=== PATIENT | female | born 1940 | race African-American/Black ===

== ENCOUNTER 2022-07-28 10:27 | Inpatient (IN) | payer MEDICARE, MEDICAID ==
[~2022-07-28] VITALS: Ht 162.6 cm; Wt 81.2 kg
[2022-07-28] MEDS ORDERED: NITROGLYCERIN 0.4MG TABLET SL SL PRN (11:30)
[2022-07-28] MEDS ORDERED: ASPIRIN 81MG TABLET PO ONE (11:30)
[2022-07-28 11:41] LABS: BASOPHILS % 0.5 % (0.0-2.0); EOSINOPHILS % 0.7 % (0.0-5.0); HEMATOCRIT. 39.1 % (36.0-48.0); HEMOGLOBIN. 13.1 g/dL (12.0-16.0); LYMPHOCYTES % 17.1 % (20.0-50.0); MEAN CORPUSCULAR HEMOGLOBIN 32.4 pg (28.0-32.0); MEAN CORPUSCULAR VOLUME 96.8 fL (81.0-99.0); MEAN PLATELET VOLUME 8.6 fl (7.4-10.4); MONOCYTES % 12.6 % (2.0-8.0); NEUTROPHILS % 69.1 % (40.0-76.0); PLATELET 165 x1000/uL (130-400); RED BLOOD CELL COUNT 4.04 mill/uL (4.2-5.4); RED CELL DISTRIBUTION WIDTH 15.3 % (11.6-14.6)
[2022-07-28 11:49] LABS: CHLORIDE 107 mEq/L (98-107)
[2022-07-28 16:00] VITALS: BP 96/50
[2022-07-28] MEDS ORDERED: CLONIDINE 0.1MG TABLET PO PRN (16:45)
[2022-07-28] MEDS ORDERED: HYDROCODONE/ACETAMINOPHEN 5/325MG TABLET PO PRN ×2 (16:45→17:00)
[2022-07-28] MEDS ORDERED: ONDANSETRON HCL 4MG/2ML INJ IV PRN (16:45)
[2022-07-28] MEDS ORDERED: ACETAMINOPHEN 325MG TABLET PO PRN (16:45)
[2022-07-28] MEDS ORDERED: IPRATROPIUM/ALBUTEROL 0.5-3(2.5)MG/3ML NEB HHN PRN (16:45)
[2022-07-28 17:00] VITALS: BP 96/50
[2022-07-28 20:00] VITALS: BP 116/67
[2022-07-29] VITALS: BP 119/61
[2022-07-29 04:00] VITALS: BP 121/64
[2022-07-29] MEDS: ACETAMINOPHEN 325MG TABLET PO PRN ×2 (06:47→14:51)
[2022-07-29 08:00] VITALS: BP 105/69
[2022-07-29] MEDS ORDERED: REGADENOSON 0.4 MG/5 ML IV NR (09:00)
[2022-07-29] MEDS: ASPIRIN 81MG EC TABLET PO SCH (09:08)
[2022-07-29] MEDS: ENOXAPARIN 40MG/0.4ML SYR SUBCUT SCH (09:10)
[2022-07-29 12:00] VITALS: BP 100/58
[2022-07-29 16:00] VITALS: BP 91/51
[2022-07-29 16:18] LABS: HEMATOCRIT. 34.2 % (36.0-48.0); HEMOGLOBIN. 11.3 g/dL (12.0-16.0); MEAN CORPUSCULAR HEMOGLOBIN 32.2 pg (28.0-32.0); MEAN CORPUSCULAR VOLUME 97.4 fL (81.0-99.0); MEAN PLATELET VOLUME 7.9 fl (7.4-10.4); PLATELET 158 x1000/uL (130-400); RED BLOOD CELL COUNT 3.51 mill/uL (4.2-5.4)
[2022-07-29 16:46] LABS: CHLORIDE 107 mEq/L (98-107)
[2022-07-29 17:03] LABS: T4 FREE 0.88 ng/dL (0.76-1.46)
[2022-07-29 17:42] LABS: PLATELET ESTIMATE NORMAL
[2022-07-29 20:00] VITALS: BP 107/68
[2022-07-29] MEDS: LORAZEPAM 0.5MG TABLET PO PRN ×2 (22:35→22:45)
[2022-07-29] MEDS: ATORVASTATIN CALCIUM 10MG TABLET PO SCH ×2 (22:36→22:45)
[2022-07-30] VITALS: BP 95/51
[2022-07-30 04:00] VITALS: BP 135/73
[2022-07-30] MEDS: ACETAMINOPHEN 325MG TABLET PO PRN ×4 (05:52→21:32)
[2022-07-30 07:12] LABS: EOSINOPHILS % 5.2 % (0.0-5.0); HEMATOCRIT. 36.8 % (36.0-48.0); HEMOGLOBIN. 12.2 g/dL (12.0-16.0); LYMPHOCYTES % 39.5 % (20.0-50.0); MEAN CORPUSCULAR HEMOGLOBIN 32.3 pg (28.0-32.0); MEAN CORPUSCULAR VOLUME 97.7 fL (81.0-99.0); MEAN PLATELET VOLUME 8.6 fl (7.4-10.4); MONOCYTES % 13.9 % (2.0-8.0); NEUTROPHILS % 40.4 % (40.0-76.0); PLATELET 156 x1000/uL (130-400); RED BLOOD CELL COUNT 3.77 mill/uL (4.2-5.4); RED CELL DISTRIBUTION WIDTH 15.2 % (11.6-14.6)
[2022-07-30 07:27] LABS: CHLORIDE 109 mEq/L (98-107)
[2022-07-30 08:00] VITALS: BP 109/64
[2022-07-30] MEDS: ASPIRIN 81MG EC TABLET PO SCH (08:48)
[2022-07-30] MEDS: ENOXAPARIN 40MG/0.4ML SYR SUBCUT SCH (08:49)
[2022-07-30] MEDS ORDERED: REGADENOSON 0.4 MG/5 ML IV ONE (08:52)
[2022-07-30 09:33] LABS: CLARITY URINE CLOUDY (CLEAR); COLOR URINE YELLOW (YELLOW); KETONES URINE NEGATIVE (NEGATIVE); LEUKOCYTE ESTERASE URINE 1+ (NEGATIVE); NITRITE URINE NEGATIVE (NEGATIVE); OCCULT BLOOD URINE NEGATIVE (NEGATIVE); PH URINE 6.5 (4.5-8.0); PROTEIN URINE NEGATIVE (NEGATIVE); SPECIFIC GRAVITY URINE 1.013 (1.005-1.030); UROBILINOGEN URINE 0.2 E.U./dL (0.2-1.0)
[2022-07-30 12:00] VITALS: BP 103/57
[2022-07-30] MEDS: LEVOFLOXACIN 500MG PREMIX 100 ML IV SCH (14:19)
[2022-07-30 16:00] VITALS: BP 101/51
[2022-07-30] MEDS: DOCUSATE SODIUM 100MG CAPSULE PO PRN (18:25)
[2022-07-30 20:00] VITALS: BP 100/61
[2022-07-30] MEDS ORDERED: LACTULOSE 20G/30ML UDC PO SCH (21:00)
[2022-07-30] MEDS: ATORVASTATIN CALCIUM 10MG TABLET PO SCH (21:30)
[2022-07-30] MEDS: LORAZEPAM 0.5MG TABLET PO PRN (21:40)
[2022-07-31] VITALS: BP 105/54
[2022-07-31 04:00] VITALS: BP 97/57
[2022-07-31 08:00] VITALS: BP 129/73
[2022-07-31 08:15] LABS: HEMATOCRIT. 36.9 % (36.0-48.0); HEMOGLOBIN. 11.9 g/dL (12.0-16.0); MEAN CORPUSCULAR HEMOGLOBIN 32.1 pg (28.0-32.0); MEAN CORPUSCULAR VOLUME 99.3 fL (81.0-99.0); MEAN PLATELET VOLUME 8.6 fl (7.4-10.4); PLATELET 162 x1000/uL (130-400); RED BLOOD CELL COUNT 3.72 mill/uL (4.2-5.4); RED CELL DISTRIBUTION WIDTH 15.3 % (11.6-14.6)
[2022-07-31] MEDS: ENOXAPARIN 40MG/0.4ML SYR SUBCUT SCH ×2 (09:00→10:24)
[2022-07-31 09:34] LABS: CHLORIDE 108 mEq/L (98-107)
[2022-07-31 09:39] LABS: PLATELET ESTIMATE NORMAL
[2022-07-31] MEDS: ACETAMINOPHEN 325MG TABLET PO PRN ×2 (10:34→22:04)
[2022-07-31 12:00] VITALS: BP 93/61
[2022-07-31] MEDS: LEVOFLOXACIN 500MG PREMIX 100 ML IV SCH (12:49)
[2022-07-31 16:00] VITALS: BP 112/69
[2022-07-31] MEDS: DOCUSATE SODIUM 100MG CAPSULE PO PRN (18:32)
[2022-07-31 20:00] VITALS: BP 100/60
[2022-07-31] MEDS: LORAZEPAM 0.5MG TABLET PO PRN (22:03)
[2022-07-31] MEDS: MAGNESIUM/ALUMINUM HYDROXIDE/SIMETHICONE 30ML UDC PO PRN (22:04)
[2022-08-01] VITALS: BP 99/74
[2022-08-01 04:00] VITALS: BP 107/67
[2022-08-01 08:00] VITALS: BP 108/57
[2022-08-01] MEDS: LEVOFLOXACIN 500MG TABLET PO SCH (10:38)
[2022-08-01] MEDS: ACETAMINOPHEN 325MG TABLET PO PRN ×3 (10:39→22:06)
[2022-08-01 12:00] VITALS: BP 125/96
[2022-08-01] MEDS: POLYETHYLENE GLYCOL 3350 (17GM) 1 DOSE PACK PO SCH (13:21)
[2022-08-01] MEDS: BENZOCAINE/LANOLIN/ALOE VERA SPRAY TOP PRN (15:43)
[2022-08-01] MEDS ORDERED: SODIUM CHLORIDE 0.9% 1000ML BAG (SEPSIS BOLUS) IV NR (15:45)
[2022-08-01 16:00] VITALS: BP 88/43
[2022-08-01 20:00] VITALS: BP 104/72
[2022-08-01] MEDS: ATORVASTATIN CALCIUM 10MG TABLET PO SCH (22:06)
[2022-08-01] MEDS: MAGNESIUM/ALUMINUM HYDROXIDE/SIMETHICONE 30ML UDC PO PRN (22:06)
[2022-08-01] MEDS: DOCUSATE SODIUM 100MG CAPSULE PO PRN (22:06)
[2022-08-02] MEDS: LORAZEPAM 0.5MG TABLET PO PRN (02:34)
[2022-08-02 08:00] VITALS: BP 98/58
[2022-08-02] MEDS: POLYETHYLENE GLYCOL 3350 (17GM) 1 DOSE PACK PO SCH (08:48)
[2022-08-02] MEDS: ENOXAPARIN 40MG/0.4ML SYR SUBCUT SCH ×2 (08:49→08:52)
[2022-08-02] MEDS: BENZOCAINE/LANOLIN/ALOE VERA SPRAY TOP PRN ×3 (08:49→21:18)
[2022-08-02] MEDS: ACETAMINOPHEN 325MG TABLET PO PRN ×3 (08:49→21:20)
[2022-08-02] MEDS ORDERED: LEVO750T68 MT (10:30)
[2022-08-02] MEDS ORDERED: ATOR10TA PO (10:30)
[2022-08-02 12:00] VITALS: BP 100/58
[2022-08-02] MEDS: LEVOFLOXACIN 500MG TABLET PO SCH (14:05)
[2022-08-02 16:00] VITALS: BP 109/66
[2022-08-02 20:00] VITALS: BP 116/69
[2022-08-02] MEDS: ATORVASTATIN CALCIUM 10MG TABLET PO SCH (21:17)
[2022-08-02] MEDS: MAGNESIUM/ALUMINUM HYDROXIDE/SIMETHICONE 30ML UDC PO PRN ×2 (21:19→22:43)
[2022-08-02] MEDS ORDERED: ZOLPIDEM TARTRATE 5MG TABLET PO PRN (23:30)
[2022-08-03] VITALS: BP 100/53
[2022-08-03 04:00] VITALS: BP_SYST 120; BP_SYST 151; BP_DIAS 53; BP_DIAS 86
[2022-08-03 08:11] VITALS: BP 99/58
[2022-08-03] MEDS: ENOXAPARIN 40MG/0.4ML SYR SUBCUT SCH ×2 (08:22→08:24)
[2022-08-03] MEDS: POLYETHYLENE GLYCOL 3350 (17GM) 1 DOSE PACK PO SCH (08:22)
[2022-08-03 10:06] VITALS: BP 99/58
[2022-08-03 10:11] LABS: VITAMIN B12 SERUM 306 pg/mL (211-911)
[2022-08-03] MEDS: LEVOFLOXACIN 500MG TABLET PO SCH (10:13)
[2022-08-03 12:09] LABS: CORTISOL 14.4 ucg/dL
[2022-08-03 12:35] VITALS: BP 100/66
[2022-08-03 15:34] LABS: PHOSPHORUS 3.4 mg/dL (2.5-4.9)
[2022-08-05 10:06] LABS: ANGIOTENSION CONVERTING ENZYME 22 U/L (14-82)
[2022-08-06 07:07] LABS: ALBUMIN 3.1 g/dL (2.9-4.4); ALPHA-1-GLOBULIN 0.2 g/dL (0.0-0.4); ALPHA-2-GLOBULIN 0.7 g/dL (0.4-1.0); BETA GLOBULIN 0.8 g/dL (0.7-1.3); GAMMA GLOBULINS 1.2 g/dL (0.4-1.8); M-SPIKE Not Observed g/dL (Not Observed); TOTAL PROTEIN SERUM 6.1 g/dL (6.0-8.5)
== END 2022-08-03 14:07 | disposition home health service (06) | DRG 203 ==
LOC: EDBD 10:32 → ER 10:32 → 6WST 12:44 → EDBEDREQTM 12:49 → EDBEDREQ 12:49 → ENRESERV 13:40
PROVIDERS: ADMIT Internal Medicine; ATTEND Internal Medicine
DX: M94.0 Chondrocostal junction syndrome [Tietze] (principal); D64.9 Anemia, unspecified; I25.10 Atherosclerotic heart disease of native coronary artery without angina pectoris; E21.0 Primary hyperparathyroidism; E78.00 Pure hypercholesterolemia, unspecified; F20.9 Schizophrenia, unspecified; N39.0 Urinary tract infection, site not specified; J98.11 Atelectasis; E78.5 Hyperlipidemia, unspecified; R30.0 Dysuria; I10 Essential (primary) hypertension; N89.8 Other specified noninflammatory disorders of vagina; M48.061 Spinal stenosis, lumbar region without neurogenic claudication; D72.819 Decreased white blood cell count, unspecified; D75.89 Other specified diseases of blood and blood-forming organs; M51.37 Other intervertebral disc degeneration, lumbosacral region; J44.9 Chronic obstructive pulmonary disease, unspecified; G89.29 Other chronic pain; Z88.0 Allergy status to penicillin; Z88.8 Allergy status to other drugs, medicaments and biological substances; Z20.822 Contact with and (suspected) exposure to COVID-19; Z79.899 Other long term (current) drug therapy
CPT/HCPCS: 36415; 71045; 72100; 78452; 80048; 80053; 80061; 81003; 82164; 82330; 82533; 82607; 82746; 83036; 83880; 83970; 84100; 84155; 84165; 84439; 84443; 84481; 84484; 85025; 87426; 93005; 93017; 93306; 97166; 99285; A9500; J1650; J1956; J2785

== ENCOUNTER 2023-08-18 19:42 | Emergency (ER) | payer MEDICARE, MEDICAID ==
[~2023-08-18] VITALS: Ht 165.1 cm; Wt 54.0 kg
[~2023-08-18 19:42] MED LIST: ATOR10TA PO; LEVO750T68 MT
[2023-08-18 19:48] VITALS: BP 148/98; PULSE 90; RESP 16; TEMP 98.3; O2SAT 97
[2023-08-18] MEDS ORDERED: KETOROLAC 60MG/2ML VIAL IM ONE (20:00)
[2023-08-18] MEDS ORDERED: KETOROLAC 15MG/ML VIAL IM NR (20:00)
[2023-08-18] MEDS ORDERED: TOPUD MT (22:06)
== END 2023-08-19 00:40 | disposition home or self-care (01) ==
LOC: ER 19:42
DX: M25.50 Pain in unspecified joint (principal); I10 Essential (primary) hypertension
CPT/HCPCS: 96372; 99283; J1885; Z7610 ×2

== ENCOUNTER 2023-08-23 09:24 | Emergency (ER) | payer MEDICARE, MEDICAID ==
[~2023-08-23] VITALS: Ht 162.6 cm; Wt 61.0 kg
[~2023-08-23 09:24] MED LIST changes: +TOPUD MT
[2023-08-23 09:27] VITALS: BP 128/77; PULSE 82; RESP 18; TEMP 98.3; O2SAT 97
[2023-08-23] MEDS ORDERED: DOXY100C5 MT (14:06)
== END 2023-08-23 11:02 | disposition home or self-care (01) ==
LOC: ER 09:24
DX: J18.9 Pneumonia, unspecified organism (principal); Z88.0 Allergy status to penicillin; Z88.5 Allergy status to narcotic agent
CPT/HCPCS: 71045; 93005; 99283

== ENCOUNTER 2023-09-18 14:10 | Emergency (ER) | payer MEDICARE, MEDICAID ==
[~2023-09-18] VITALS: Ht 152.4 cm; Wt 50.0 kg
[~2023-09-18 14:10] MED LIST changes: +DOXY100C5 MT
[2023-09-18 14:21] VITALS: O2SAT 98
[2023-09-18 15:20] LABS: BASOPHILS % 0.9 % (0.0-2.0); EOSINOPHILS % 2.8 % (0.0-5.0); HEMATOCRIT. 34.1 % (36.0-48.0); HEMOGLOBIN. 11.1 g/dL (12.0-16.0); LYMPHOCYTES % 31.1 % (20.0-50.0); MEAN CORPUSCULAR HEMOGLOBIN 32.4 pg (28.0-32.0); MEAN CORPUSCULAR HGB CONC 32.5 g/dL (31.0-37.0); MEAN CORPUSCULAR VOLUME 99.9 fL (81.0-99.0); MEAN PLATELET VOLUME 8.6 fl (7.4-10.4); MONOCYTES % 11.7 % (2.0-8.0); NEUTROPHILS % 53.5 % (40.0-76.0); PLATELET 236 x1000/uL (130-400); RED BLOOD CELL COUNT 3.41 mill/uL (4.2-5.4); RED CELL DISTRIBUTION WIDTH 14.9 % (11.6-14.6); WHITE BLOOD COUNT 3.1 x1000/uL (4.5-11.0)
[2023-09-18 15:25] LABS: ALANINE AMINOTRANSFERASE 10 IU/L (10-49); ALBUMIN 3.8 g/dL (3.2-4.8); ASPARTATE AMINOTRANSFERASE 19 IU/L (<34); BILIRUBIN TOTAL 0.4 mg/dL (0.1-1.0); CALCIUM 10.5 mg/dL (8.7-10.4); CARBON DIOXIDE 24 mEq/L (21-32); CHLORIDE 111 mEq/L (98-107); CREATINE KINASE 102 IU/L (34-145); CREATININE 0.7 mg/dL (0.6-1.0); GLUCOSE 90 mg/dL (70-105); PROTEIN TOTAL 7.2 g/dL (6.0-8.3); SODIUM 142 mEq/L (136-145); UREA NITROGEN BLOOD 18 mg/dL (9-23)
[2023-09-18] MEDS ORDERED: ACETAMINOPHEN 325MG TABLET PO ONE (15:45)
[2023-09-18 16:32] VITALS: TEMP 97.1
[2023-09-18 17:30] VITALS: BP 137/78; PULSE 76; RESP 16
== END 2023-09-18 20:05 | disposition home or self-care (01) ==
LOC: ER 14:10
DX: M79.10 Myalgia, unspecified site (principal); F20.9 Schizophrenia, unspecified; F03.90 Unspecified dementia, unspecified severity, without behavioral disturbance, psychotic disturbance, mood disturbance, and anxiety; Z88.0 Allergy status to penicillin; Z88.5 Allergy status to narcotic agent
CPT/HCPCS: 36415; 80053; 82550; 85025; 99283